=== PATIENT | male | born 2000 | race Caucasian/White ===

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

== ENCOUNTER 2020-02-22 00:55 | Emergency (ER) | payer OTHER ==
[~2020-02-22] VITALS: Ht 180.3 cm; Wt 70.5 kg
[2020-02-22] MEDS ORDERED: NS 1,000 ML IV ONE (01:30)
[2020-02-22 02:07] VITALS: BP 103/55
--- NOTE | 2020-02-22 07:28 | ECGEPIP ---
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
== END 2020-02-22 02:15 | disposition home or self-care (01) ==
LOC: M ED 00:55
DX: F12.920 Cannabis use, unspecified with intoxication, uncomplicated (principal); K21.9 Gastro-esophageal reflux disease without esophagitis; Z79.899 Other long term (current) drug therapy

== ENCOUNTER → 2020-04-15 | Outpatient (CLI) | payer OTHER ==
[2020-04-15 19:39] LABS: ALBUMIN 4.4 GM/DL (3.2-5.2); ALT/SGPT 17 U/L (12-78); BILIRUBIN,DIRECT 0.2 MG/DL (0.0-0.2); BILIRUBIN,TOTAL 2.9 MG/DL (0.2-1.0); BLOOD UREA NITROGEN 12 MG/DL (7-18); C REACTIVE PROTEIN QUANTITATIV < 0.30 MG/DL (0.00-0.30); CREATININE FOR GFR 0.84 MG/DL (0.70-1.30)
[2020-04-15 20:26] LABS: HIV 1&2 SCREEN CENTAUR NEGATIVE (NEGATIVE)
[2020-04-17 15:10] LABS: % CD4+ LYMPHS 44.9 % (30.8-58.5); ABSOLUTE CD4 HELPER 763 /uL (359-1519); BASOPHILS 1 % (Not Estab.); EOSINOPHILS 4 % (Not Estab.); EOSINOPHILS ABSOLUTE 0.2 x10E3/uL (0.0-0.4); HCT 44.1 % (37.5-51.0); HGB 14.7 g/dL (13.0-17.7); LYMPHOCYTES 31 % (Not Estab.); LYMPHOCYTES ABSOLUTE 1.7 x10E3/uL (0.7-3.1); MCH 30.2 pg (26.6-33.0); MCHC 33.3 g/dL (31.5-35.7); MCV 91 fL (79-97); MONOCYTES 9 % (Not Estab.); MONOCYTES ABSOLUTE 0.5 x10E3/uL (0.1-0.9); NEUTROPHILS 55 % (Not Estab.); PLT 317 x10E3/uL (150-450); RBC 4.87 x10E6/uL (4.14-5.80); RDW 11.8 % (11.6-15.4); WBC 5.3 x10E3/uL (3.4-10.8)
== END ==
LOC: M WUC 14:28
PROVIDERS: ATTEND Internal Medicine Gastroenterology
DX: K29.70 Gastritis, unspecified, without bleeding (principal)

== ENCOUNTER → 2020-04-15 | Outpatient (CLI) | payer OTHER ==
[2020-04-15 19:17] LABS: BASO % 0.6 % (0.0-1.0); EOS # 0.2 10^3/uL (0.0-0.5); EOS % 3.5 % (0.0-3.0); HEMATOCRIT 39.6 % (42.0-52.0); HEMOGLOBIN 13.9 g/dl (13.5-17.5); LYMPH # 1.8 10^3/uL (1.5-5.0); LYMPH % 33.8 % (24.0-44.0); MEAN CORPUSCULAR HEMOGLOBIN 30.5 pg (27.0-33.0); MEAN CORPUSCULAR HGB CONC 35.1 g/dl (32.0-36.5); MONO # 0.5 10^3/uL (0.0-0.8); MONO % 9.5 % (0.0-5.0); NEUTROPHILS # 2.7 10^3/uL (1.5-8.5); NEUTROPHILS % 52.4 % (36.0-66.0); PLATELET COUNT, AUTOMATED 279 10^3/uL (150-450); RED BLOOD COUNT 4.55 10^6/uL (4.30-6.10); WHITE BLOOD COUNT 5.2 10^3/uL (4.0-10.0)
[2020-04-15 19:38] LABS: ALBUMIN 4.3 GM/DL (3.2-5.2); ALT/SGPT 17 U/L (12-78); BILIRUBIN,DIRECT 0.2 MG/DL (0.0-0.2); BILIRUBIN,TOTAL 2.9 MG/DL (0.2-1.0); BLOOD UREA NITROGEN 13 MG/DL (7-18); C REACTIVE PROTEIN QUANTITATIV < 0.30 MG/DL (0.00-0.30); CALCIUM LEVEL 9.1 MG/DL (8.5-10.1); CARBON DIOXIDE LEVEL 30 MEQ/L (21-32); CHLORIDE LEVEL 105 MEQ/L (98-107); CREATININE FOR GFR 0.88 MG/DL (0.70-1.30); GLUCOSE, FASTING 73 MG/DL (70-100); SODIUM LEVEL 140 MEQ/L (136-145); TOTAL PROTEIN 6.9 GM/DL (6.4-8.2)
[2020-04-15 19:40] LABS: ERYTHROCYTE SEDIMENTATION RATE 1 mm/hr (0-15)
[2020-04-15 20:27] LABS: HIV 1&2 SCREEN CENTAUR NEGATIVE (NEGATIVE)
[2020-04-18 14:08] LABS: % CD4+ LYMPHS 43.6 % (30.8-58.5); ABSOLUTE CD4 HELPER 785 /uL (359-1519); BASOPHILS 1 % (Not Estab.); EOSINOPHILS 4 % (Not Estab.); EOSINOPHILS ABSOLUTE 0.2 x10E3/uL (0.0-0.4); HGB 14.8 g/dL (13.0-17.7); LYMPHOCYTES 33 % (Not Estab.); LYMPHOCYTES ABSOLUTE 1.8 x10E3/uL (0.7-3.1); MCH 29.6 pg (26.6-33.0); MCHC 33.6 g/dL (31.5-35.7); MCV 88 fL (79-97); MONOCYTES 10 % (Not Estab.); MONOCYTES ABSOLUTE 0.5 x10E3/uL (0.1-0.9); NEUTROPHILS 52 % (Not Estab.); NEUTROPHILS ABSOLUTE 2.9 x10E3/uL (1.4-7.0); PLT 307 x10E3/uL (150-450); RDW 11.8 % (11.6-15.4); WBC 5.5 x10E3/uL (3.4-10.8)
== END ==
LOC: M WUC 14:31
PROVIDERS: ATTEND Pediatrics
DX: R11.10 Vomiting, unspecified (principal)

== ENCOUNTER → 2020-05-06 | Outpatient (CLI) | payer OTHER ==
--- NOTE | 2020-05-22 07:14 | REP ---
LIMITED ABDOMINAL ULTRASOUND CLINICAL: Epigastric pain. TECHNIQUE: Real-time santos scale and color evaluation using curved array transducer. FINDINGS: Liver and pancreas are normal in contour, size, and echogenicity without focal hepatic or pancreatic lesion identified. Gallbladder is normal and without gallstones, wall thickening, or pericholecystic fluid. No biliary ductal dilatation is appreciated and the common bile duct measures 4-mm in diameter. Right kidney is normal in reniform shape without hydronephrosis and measures 11.3 x 6.2 x 4.1 cm. No ascites in the visualized right upper quadrant. IMPRESSION: Normal right upper quadrant abdominal ultrasound. MTDD
== END ==
LOC: M RAD 10:00
PROVIDERS: ATTEND Internal Medicine Gastroenterology
DX: R10.13 Epigastric pain (principal)